=== PATIENT | male | born 1995 | race Caucasian/White ===

== ENCOUNTER 2016-07-29 03:44 | Emergency (ER) | payer OTHER ==
[~2016-07-29] VITALS: Ht 180.3 cm; Wt 92.7 kg
[~2016-07-29 03:44] MED LIST: IBUP-1050 PO
[2016-07-29 03:47] VITALS: TEMP 36.8; Ht 180.3 cm; Wt 92.7 kg
[2016-07-29] MEDS ORDERED: XYLOCAINE 1%/SOD BICARB 20 ML VIAL INFIL ONE (04:00)
[2016-07-29 04:52] VITALS: BP 119/61; PULSE 84; O2SAT 98
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
== END 2016-07-29 04:53 ==
LOC: EDBD 03:44 → C.EDA 03:46
DX: S01.91XA Laceration without foreign body of unspecified part of head, initial encounter (principal); Y09 Assault by unspecified means

== ENCOUNTER 2016-08-05 15:20 | Emergency (ER) | payer OTHER ==
[~2016-08-05] VITALS: Ht 180.3 cm; Wt 93.1 kg
[2016-08-05 15:27] VITALS: BP 118/73; PULSE 92; TEMP 36.8; O2SAT 97; Ht 180.3 cm; Wt 93.1 kg
--- NOTE | 2016-08-05 15:41 | EMERGENCY ROOM VISIT NOTE ---
ED Visit Note First contact with patient: 15:30 CHIEF COMPLAINT: Suture removal This patient returns to the ED today for removal of sutures that were placed 7 days ago. There has been no swelling, redness, or drainage from the wound. The patient feels like the laceration is healing well. REVIEW OF SYSTEMS: Head: No headache, injury or neck pain. Skin: No rash, new lesions, or masses. General: No fever or chills, fatigue, loss of appetite , or significant recent weight gain or loss. PMH: The patient is healthy; there is no significant medical or surgical history. SOCIAL HISTORY: Patient lives at home. PHYSICAL EXAM: Vital Signs: Reviewed Nurse's notes. There is a sutured wound on the forehead with no signs of infection. There is no erythema, swelling, or tenderness. EMERGENCY DEPARTMENT COURSE: The sutures were removed without any difficulty and there was no separation of the wound edges. DIAGNOSIS: Healing laceration and suture removal DISCHARGE INSTRUCTIONS AND TREATMENT: Wash any remaining crusts off of the wound today and resume your normal activities. Current/Historical Medications Scheduled PRN Ibuprofen (Advil), 800 MG PO TID PRN for Pain Allergies Coded Allergies: No Known Allergies (Unverified , 02/06/16) Vital Signs Date Time Temp Pulse Resp B/P Pulse Ox O2 Delivery O2 Flow Rate FiO2 08/05/16 15:27 36.8 92 18 118/73 97 Room Air Departure Information Impression Primary Impression: Encounter for removal of sutures Dispostion Home / Self-Care Condition GOOD Referrals No Doctor, Assigned (PCP) Patient Instructions My [facility] Additional Instructions Wash any remaining crusts off of the wound today and resume your normal activities. Use vitamin E oil or cocoa butter in 1-2 weeks to reduce scarring. Keep SPF over the wound for the next 6 months to reduce scarring.
== END 2016-08-05 15:46 | disposition home or self-care (01) ==
LOC: C.EDB 15:21 → C.EDD 15:46
DX: Z48.02 Encounter for removal of sutures (principal)